=== PATIENT | male | born 1960 | race Caucasian/White ===

== ENCOUNTER 2019-04-12 09:52 | Inpatient (IN) | payer BC ==
[2019-04-12] MEDS ORDERED: Morphine 2 MG/ML SYRINGE ONE (10:42)
[2019-04-12] MEDS ORDERED: Piperacillin/Tazobactam 3.375 GM VIAL ONE (11:25)
[2019-04-12] MEDS ORDERED: Morphine 4 MG/ML VIAL ONE (11:45)
[2019-04-12] MEDS ORDERED: Bupivacaine/Epinephrine 0.25% 30 ML VIAL ONE (13:19)
[2019-04-12] MEDS ORDERED: HYDROmorphone 0.5 MG/0.5 ML SYRINGE ONE (13:23)
[2019-04-12] MEDS ORDERED: Fentanyl 100 MCG/2 ML VIAL ONE (13:23)
[2019-04-12] MEDS ORDERED: Dexamethasone 20 MG/5 ML VIAL ONE (14:16)
[2019-04-12] MEDS ORDERED: PROPOFOL 200 MG/20 ML VIAL ONE (14:16)
[2019-04-12] MEDS ORDERED: Ondansetron PF 4 MG/2 ML Vial ONE (14:16)
[2019-04-12] MEDS ORDERED: Glycopyrrolate 0.2 MG/ML 5 ML SYRINGE ONE (14:16)
[2019-04-12] MEDS ORDERED: PHENYLEPHRINE-NS 100 MCG/ML 10 ML SYRINGE ONE (14:16)
[2019-04-12] MEDS ORDERED: Rocuronium Bromide 10 MG/ML (10ML VIAL) ONE (14:16)
[2019-04-12] MEDS ORDERED: Ketorolac Tromethamine 30 MG/ML VIAL ONE (14:16)
[2019-04-12] MEDS ORDERED: Lidocaine 1% PF 5 ML VIAL ONE (14:16)
[2019-04-12] MEDS ORDERED: Ondansetron PF 4 MG/2 ML Vial IVP PRN (14:37)
[2019-04-12] MEDS ORDERED: Morphine 2 MG/ML SYRINGE SLOW IVP PRN (14:37)
[2019-04-12] MEDS ORDERED: PACU-Morphine 4MG/ML VIAL SLOW IVP PRN (14:37)
[2019-04-12] MEDS ORDERED: HYDROcodone/Acetaminophen 10/325 mg Tablet PO PRN ×2 (14:37)
[2019-04-12] MEDS ORDERED: Morphine 4 MG/ML VIAL SLOW IVP PRN (14:37)
[2019-04-12] MEDS ORDERED: Promethazine HCl 25 MG/ML VIAL SLOW IVP PRN (14:37)
[2019-04-12] MEDS ORDERED: Ondansetron HCl/PF 4 MG/2 ML Vial IVP PRN (14:37)
[2019-04-12] MEDS ORDERED: hydrALAZINE 20 MG/ML VIAL SLOW IVP PRN (14:37)
[2019-04-12] MEDS ORDERED: Dextrose 50% Abboject 50 ML SYRINGE SLOW IVP PRN (14:37)
[2019-04-12] MEDS ORDERED: HYDROmorphone 2 MG/ML VIAL SLOW IVP PRN (14:37)
[2019-04-12] MEDS ORDERED: Dextrose 5% in Water 1,000 ML IV PRN (14:37)
[2019-04-12] MEDS ORDERED: Promethazine HCl 25 MG/ML VIAL IM PRN ×2 (14:37)
--- NOTE | 2019-04-12 15:19 | HP ---
CHIEF COMPLAINT: Right lower quadrant abdominal pain. HISTORY OF PRESENT ILLNESS: The patient is a 58-year-old male, who awoke at approximately 12:30 a.m. this morning with severe right lower quadrant pain associated with nausea and vomiting. He went to the emergency room, where CT scan showed appendicitis. He also was found to have a low-grade fever. PAST MEDICAL HISTORY: Hypertension and diabetes, diet controlled. PAST SURGICAL HISTORY: None. MEDICATIONS: No medications. ALLERGIES: NO KNOWN DRUG ALLERGIES. SOCIAL HISTORY: He is . He works as a senior software engineer analytics. No tobacco. He drinks alcohol about 3 times a week. FAMILY HISTORY: Father had prostate cancer. PHYSICAL EXAMINATION: VITAL SIGNS: Temperature is 99.5, pulse 110, and blood pressure is 148/91. GENERAL: Well-developed, well-nourished male, in no apparent distress. HEENT: He has little Band-Aid on the tip of his nose. LUNGS: Clear. HEART: Regular rate and rhythm. ABDOMEN: Soft, tender in the right lower quadrant to percussion. EXTREMITIES: Unremarkable. LABORATORY DATA: His white count 9.1, H and H of 13.9 and 40.6, and platelet count of 184. Electrolytes are fine. LFTs normal. IMAGING DATA: CT scan shows periappendiceal stranding consistent with acute appendicitis. No evidence of perforation. ASSESSMENT: Acute appendicitis. PLAN: Laparoscopic appendectomy. CONSENT: I have discussed the planned procedure as well as risk of bleeding, infection, injury to bowel, bladder, need to open. He understands and gives informed consent. Job ID: [id number]
[2019-04-12 17:12] VITALS: BMI 30.2
[2019-04-12] MEDS: Piperacillin/Tazobactam 3.375 GM in Sodium Chloride 0.9% 100 ML IVPB SCH (17:20)
[2019-04-12] MEDS: D5 1/2 NS w/20 mEq KCL 1,000 ML IV SCH (17:22)
[2019-04-12] MEDS: Ketorolac Tromethamine 30 MG/ML VIAL IVP SCH (17:23)
[2019-04-12] MEDS: Famotidine 20 MG TAB PO SCH (20:21)
[2019-04-12] MEDS: Cepastat Lozenges 1 LOZ PO PRN (20:21)
[2019-04-12] MEDS: Famotidine/PF 20 mg/2ml Vial SLOW IVP SCH (20:30)
[2019-04-13] MEDS: Cepastat Lozenges 1 LOZ PO PRN (00:05)
[2019-04-13 05:09] LABS: #Lymphocytes 1.3 thou/uL (1.20-3.40); #Monocytes 0.6 thou/uL (0.11-0.59); %Lymphocytes 8.4 % (21.0-51.0); %Monocytes 4.1 % (0.0-10.0); %Neutrophils 87.4 % (42.0-75.0); Hemoglobin 12.4 g/dL (14.0-18.0); Mean Corpuscular HGB CONC 33.9 g/dL (32.0-36.0); Mean Corpuscular Hemoglobin 29.9 pg (27.0-31.0); Mean Corpuscular Volume 88.4 fL (78.0-98.0); Mean Platelet Volume 8.5 fL (7.4-10.4); Platelet Count 152 thou/uL (130-400); RBC Distribution Width 12.3 % (11.5-14.5); Red Blood Cell (RBC) Count 4.16 mill/uL (4.70-6.10); White Blood Cell (WBC) Count 14.8 thou/uL (4.8-10.8)
[2019-04-13 05:32] LABS: Anion Gap 10 mmol/L (10-20); BUN (Urea Nitrogen) 15 mg/dL (8.4-25.7); Calc. Creatinine Clearance 88 mL/min (70-130); Calcium 8.3 mg/dL (7.8-10.44); Carbon Dioxide 23 mmol/L (22-29); Chloride 103 mmol/L (98-107); Estimated GFR-MDRD 52; Glucose 318 mg/dL (70-105); Potassium 4.1 mmol/L (3.5-5.1); Sodium 132 mmol/L (136-145)
[2019-04-13] MEDS: Ketorolac Tromethamine 30 MG/ML VIAL IVP SCH ×3 (06:11→13:53)
[2019-04-13] MEDS: Piperacillin/Tazobactam 3.375 GM in Sodium Chloride 0.9% 100 ML IVPB SCH ×3 (06:11→13:53)
[2019-04-13] MEDS: Famotidine 20 MG TAB PO SCH (08:39)
[2019-04-13] MEDS ORDERED: Enoxaparin Sodium 40 MG/0.4 ML SYRINGE SC SCH (09:00)
[2019-04-13] MEDS: D5 1/2 NS w/20 mEq KCL 1,000 ML IV SCH ×2 (13:53)
[2019-04-13] MEDS: Famotidine/PF 20 mg/2ml Vial SLOW IVP SCH (13:54)
[2019-04-13 17:00] VITALS: BP 143/85; TEMP 98.5
--- NOTE | 2019-04-14 10:48 | OP ---
DATE OF PROCEDURE: 04/12/2019 PREOPERATIVE DIAGNOSIS: Acute appendicitis. PROCEDURES PERFORMED: Laparoscopic appendectomy and drainage of periappendiceal abscess. INDICATIONS: A 58-year-old male with a 2-day history of right lower quadrant pain, nausea. CT showed appendicitis. FINDINGS: Ruptured appendicitis with periappendiceal abscess. DESCRIPTION OF PROCEDURE: After informed consent was obtained, the patient was taken to the operating room, given general endotracheal anesthesia, placed in supine position. Abdomen was prepped and draped in usual fashion. Local anesthesia was infiltrated subcutaneously and deep. A subumbilical incision was performed. Subcu divided sharply. The fascia was grasped and 2 stay sutures of 0 Vicryl placed in each side of midline. Midline incised. Digital palpation revealed no local adhesions. A blunt 12 mm trocar was inserted. Pneumoperitoneum was created to a pressure of 15 mmHg. A 0 degree laparoscope was inserted under direct vision. Two 5 mm ports were placed, one suprapubic and one right lateral abdomen. There was quite a bit of inflammation and some fibrinous exudate and when this was pushed aside up, abscess cavity was found. This was aspirated for culture. Then, also removed and irrigated. The appendix was found. The tip of the appendix was somewhat retroperitoneal. The rupture occurred in the mid body of the appendix. The mesoappendix was divided utilizing the LigaSure. The base of the appendix was stapled with a 45 mm white load stapler. The appendix was placed in an endosac and removed from the abdomen in the endosac. The abdomen was irrigated. Irrigation fluid was removed. The pelvis was irrigated and again removed. A drain was placed and brought down along the right gutter and into the pelvis, brought out through the suprapubic incision. Hemostasis was assured. Trocars and retractors were removed. The fascia was closed with interrupted 0 Vicryl suture. The skin was closed with interrupted 4-0 Rapide. Dermabond was applied. The patient tolerated the procedure well and transferred to Recovery in good condition. Sponge and needle count verified correct x2. Job ID: [id number]
--- NOTE | 2019-04-14 12:40 | DIS ---
DATE OF ADMISSION: 04/12/2019 DATE OF DISCHARGE: 04/13/2019 DISCHARGE DIAGNOSIS: Acute appendicitis with local perforation. PROCEDURES DURING ADMISSION: Laparoscopic appendectomy and drainage of periappendiceal abscess. HOSPITAL COURSE: The patient was admitted, given IV antibiotics, taken to the operating room, where he underwent a laparoscopic appendectomy and drainage of perforated appendix. Postoperatively, he has done well. Immediately in the recovery room, he was feeling much better. He has been up walking. He is eating a regular diet. His pain is minimal. No fever. No nausea or vomiting. So, he is being discharged home on doxycycline 100 p.o. b.i.d., Fromberg, and Zofran. He will follow up with me on Sunday. He will keep the drain. He is going to record his drain output b.i.d. Job ID: [id number]
--- NOTE | 2019-04-15 04:46 | PQF ---
[employer] T[employer] Crystal Reports Winform ViewerMOOK CONTRERAS JOHN A JR MD [id number] SURG [id number] CLINICAL DOCUMENTATION CLARIFICATION FORM: POST DISCHARGE Addendum to original discharge summary date: ____ Late entry note date: __ DATE:04-15-2019 ATTN:Arron Zaman Jr. Please exercise your independent, professional judgment in responding to the clarification form. Clinical indicators are provided on the bottom of this form for your review Can you please specify the clinical significance of the indicators below. Please check appropriate box(s): [ ] Hyponatremia [ ] Insignificant laboratory finding [ ] Other diagnosis please specify: [ ] Unable to determine For continuity of documentation, please document condition throughout progress notes and discharge summary. Thank You. CLINICAL INDICATORS: -HP 04/12 "CC: right lower quadrant abdominal pain" -HP 04/12 "associated with nausea and vomiting" -Labs 04/13 Sodium 132 RISK FACTORS: -HP 04/12 - 58 years old -HP 04/12 DM -DS 04/13 - Acute appendicitis with local perforation TREATMENT: -Laboratory monitoring - Collected 04/13 -IVF - OCT 05 -Sodium Chloride 10ml IV - OCT 05 (This form is maintained as a part of the permanent medical record) 2014 [employer] All Rights Reserved Kaylie [email or web address] [not provided] MTDD
== END 2019-04-13 14:05 | disposition home or self-care (01) | DRG 340 ==
LOC: SDC 09:52 → SURG B 14:37
PROVIDERS: ADMIT Surgery; ATTEND Surgery
PROC: 0DTJ4ZZ Resection of Appendix, Percutaneous Endoscopic Approach (ICD-10-PCS; principal; 2019-04-12)
DX: K35.33 Acute appendicitis with perforation, localized peritonitis, and gangrene, with abscess (principal); I10 Essential (primary) hypertension; E11.9 Type 2 diabetes mellitus without complications; Z79.899 Other long term (current) drug therapy
CPT/HCPCS: 80048; 85025; 87070; 87077; 87186; 87205; 88304; J1100; J1170; J1650; J1885; J2001; J2270; J2405; J2543; J2704; J3010; J3490